=== PATIENT | male | born 1980 | race African-American/Black ===

== ENCOUNTER 2021-10-23 17:46 | Emergency (ER) | payer OTHER, SELFPAY ==
--- NOTE | ~2021-10-23 | XR_ITS ---
EXAMINATION: XR chest 1V portable INDICATION: Burning sensation of the chest TECHNIQUE: Portable AP chest at 2104 hours COMPARISON: None available FINDINGS: There are patchy opacities of the lung bases. No pleural effusion or pneumothorax is identi fied. The cardiomediastinal silhouette is normal. The visualized osseous structures are unremarkable. IMPRESSION: 1. Bibasilar airspace opacities, consistent with atelectasis versus pneumonia. Reviewed, dictated and finalized at location F. UTER PROJECT MANAGER
--- NOTE | ~2021-10-23 | CT_ITS ---
EXAMINATION: CT abdomen pelvis w con INDICATION: Generalized abdominal pain TECHNIQUE: Computed tomographic images of the abdomen and pelvis were obtained after the administrati on of 100 cc of Omnipaque 350 intravenous contrast. The dose-length product (DLP) was 225.41 mGy-cm. Automated exposure control and iterative reconstruction technique were employed. COMPARISON: None available FINDINGS: Minimal dependent atelectasis is present in the lung bases. The heart size is normal. There appears to be an 8 mm hemangioma of the right hepatic lobe. The spleen, pancreas, gallbladder, and a drenal glands are normal. Cysts of the kidneys measure up to 2.1 cm on the right. No pathologically e nlarged abdominal or pelvic lymph nodes are identified. The appendix is normal. There is no free intr aperitoneal gas or evidence of bowel obstruction. IMPRESSION: 1. No CT correlate for the patient's symptoms. Reviewed, dictated and finalized at location F. SAGE INSTRUCTOR
[2021-10-23 17:48] VITALS: BP 175/81; PULSE 90; RESP 18; TEMP 37.3; O2SAT 97
--- NOTE | 2021-10-23 20:44 | ED.GENADULT ---
HPI - General Adult General Chief complaint: Nausea/Vomiting/Diarrhea Stated complaint: i feel bad Time Seen by Provider: 10/23/21 20:14 Source: patient Mode of arrival: ambulatory Limitations: no limitations History of Present Illness HPI narrative: 41 years old -[place] male presents with diffuse abdominal pain started 3 days ago after eating tuna steak. Associated with some nausea. Patient denies any fever, chills, diarrhea, constipation, urinary symptoms. Patient is not vaccinated for COVID-19. Patient also complaining of runny nose and burning in the chest. Patient denies any fever, chills, headache, body ache, sore throat, coughing or shortness of breath. Related Data Home Medications Medication Instructions Recorded Confirmed No Home Medications 10/23/21 10/23/21 Allergies Allergy/AdvReac Type Severity Reaction Status Date / Time No Known Allergies Allergy Mild Verified 10/23/21 17:51 Review of Systems Review of Systems: CONSTITUTIONAL: Denies fever, chills, or sweats. EYES: Denies visual changes, redness, or discharge. ENT: Denies rhinorrhea, congestion, sore throat, or otalgia. CARDIOVASCULAR: Denies chest pain, palpitations, or edema. RESPIRATORY: Denies cough or dyspnea. GASTROINTESTINAL: Denies abdominal pain, nausea, vomiting, or diarrhea. GENITOURINARY: Denies dysuria or hematuria. SKIN: Denies rash or itching. MUSCULOSKELETAL: Denies back pain, joint pain, or myalgia. NEUROLOGIC: Denies headache, numbness, or weakness. PSYCHIATRIC: Denies anxiety or depression. Exam Narrative: General appearance: Well-developed, well-nourished Skin: Normal color Head: Normocephalic, nontraumatic Eyes: Clear conjunctiva ENT: Oropharynx normal, ears normal, nose normal Neck: Supple, nontender Chest and respiratory: Airway patent, no respiratory distress, no accessory muscle use Heart: Regular rate/rhythm Abdomen: Soft, slight diffuse tenderness, no organomegaly, quiet bowel sounds Vascular: Normal peripheral pulses, normal capillary refill. Musculoskeletal: Normal range of motion, nontender back Neurologic: Alert and oriented ?3, BOOK AUTHOR is normal as tested, no gross motor deficit Course Course Emergency Course: Stable Reevaluation(s) Reevaluation #1: At the time of discharge patient reported that he had blood in the urine few seconds ago. Urine analysis ordered. Patient is not sure if he have exposure to Covid people or not. Chest x-ray showed bilateral basal infiltration, atelectasis versus pneumonia. Covid test ordered. Date: 10/24/21 Time: 00:34 Vital Signs Vital signs: Vital Signs Temperature 37.3 C 10/23/21 17:48 Pulse Rate 90 10/23/21 17:48 Respiratory Rate 18 10/23/21 17:48 Blood Pressure 175/81 H 10/23/21 17:48 Pulse Oximetry 97 10/23/21 17:48 Temperature 36.9 C 10/23/21 23:46 Pulse Rate 83 10/23/21 23:46 Respiratory Rate 17 10/23/21 23:46 Blood Pressure 105/63 10/23/21 23:46 Pulse Oximetry 97 10/23/21 23:46 Medical Decision Making MDM Narrative Medical decision making narrative: Patient presents with abdominal pain of unknown etiology at this time. Spoiled food could be the underlying cause. Vital Signs Vital Signs: Vital Signs Temperature 37.3 C 10/23/21 17:48 Pulse Rate 90 10/23/21 17:48 Respiratory Rate 18 10/23/21 17:48 Blood Pressure 175/81 H 10/23/21 17:48 Pulse Oximetry 97 10/23/21 17:48 Temperature 36.9 C 10/23/21 23:46 Pulse Rate 83 10/23/21 23:46 Respiratory Rate 17 10/23/21 23:46 Blood Pressure 105/63 10/23/21 23:46 Pulse Oximetry 97 10/23/21 23:46 Lab Data Result diagrams: 10/23/21 20:52 10/23/21 2
[2021-10-23] MEDS: SODIUM CHLORIDE 0.9% IV 1,000 ML 999 ML IV CONT (20:54)
[2021-10-23] MEDS: ONDANSETRON INJ 4 MG/2 ML VIAL IV PUSH (20:54)
[2021-10-23] MEDS: MORPHINE SULFATE (*CRX) 4 MG/ML INJ IV PUSH (20:55)
[2021-10-23 20:57] VITALS: TEMP 37.8
[2021-10-23 21:05] LABS: Basophils Absolute Auto 0.1 K/mm3 (0.0-0.1); Basophils Percent Auto 1.4 % (0.2-1.2); Eosinophils Absolute Auto 0.3 K/mm3 (0-0.3); Eosinophils Percent Auto 4.2 % (0-4.4); Hematocrit 50.5 % (42.0-52.0); Hemoglobin 17.6 g/dL (14.0-18.0); Immature Granulocyte Absolute 0.03 K/mm3 (0.00-0.031); Immature Granulocyte Percent A 0.4 % (0-0.5); Lymphocytes Absolute Auto 2.25 K/mm3 (0.9-3.2); Lymphocytes Percent Auto 29.6 % (18.3-44.2); Mean Corpuscular HGB Conc 34.9 g/dl (32-36); Mean Corpuscular Hemoglobin 28.9 pg (26-34); Mean Corpuscular Volume 83.1 fl (80-100); Mean Platelet Volume 11.2 fl (7.4-10.4); Monocytes Absolute Auto 1.6 K/mm3 (0.1-0.6); Monocytes Percent Auto 20.5 % (2.6-8.5); Neutrophils Absolute Auto 3.3 K/mm3 (1.3-6.7); Neutrophils Percent Auto 43.9 % (45.5-73.1); Platelet Count Result 231 k/mm3 (150-375); Red Blood Count 6.08 M/mm3 (4.6-6.20); Red Cell Distribution Width 15.2 % (11.5-14.5); White Blood Count 7.6 K/mm3 (4.5-10.0)
[2021-10-23 22:03] LABS: Alanine Aminotransferase 43 U/L (4-50); Albumin Level 4.5 g/dL (3.5-5.1); Alkaline Phosphatase 66 U/L (38-126); Anion Gap 12 mmol/L (8-16); Aspartate Amino Transferase 38 U/L (17-59); Bilirubin,Total 0.6 mg/dL (0.2-1.3); Blood Urea Nitrogen 13 mg/dL (9-20); Calcium 8.8 mg/dL (8.4-10.2); Carbon Dioxide 22 mmol/L (22-30); Chloride 101 mmol/L (98-107); Estimated CRCL calculation 70 ml/min; Estimated Glomerular Filt Rate > 60; Glucose 90 mg/dL (65-110); Lipase 215 U/L (23-300); Potassium 3.6 mmol/L (3.4-5.0); Sodium 135 mmol/L (137-145)
--- NOTE | 2021-10-23 23:34 | PC.NURSE ---
Pt unable to urinate, given water per EDP Dr Hou, urinal, and call light.
[2021-10-23 23:46] VITALS: BP 105/63; PULSE 83; RESP 17; TEMP 36.9; O2SAT 97
[2021-10-24 00:32] LABS: Add Urine Microscopic? YES; Appearance Urine Clear (Clear); Bilirubin Urine Negative (Negative); Blood Urine Negative (Negative); Color Urine Straw (Yellow); Glucose Urine UA Negative (Negative); Ketones Urine Trace mg/dL (Negative); Leukocyte Esterase Ur Negative LEU/UL (Negative); Nitrate Urine Negative (Negative); Protein Urine Negative (Negative); RBC Urine 0-2 /hpf (0-2); Squamous Epithelial Cell Urine Rare /hpf (Few); Urobilinogen Urine Negative mg/dL (<2.0); WBC Urine 0-3 /hpf
[2021-10-24 14:05] LABS: SARS-CoV-2 RNA PCR Positive
== END 2021-10-24 00:56 | disposition home or self-care (01) ==
PROVIDERS: Emergency Provider Emergency Medicine
DX: U07.1 COVID-19 (principal); R10.84 Generalized abdominal pain
CPT/HCPCS: 36415; 71045; 74177; 80053; 81001; 83690; 85025; 96361; 96374; 96375; 99284; C9803; J2270; J2405; J7030; Q9967; U0003; U0005